=== PATIENT | female | born 1985 | race Caucasian/White ===

== ENCOUNTER → 2016-04-24 | Outpatient (CLI) | payer OTHER ==
[2016-04-24 17:41] LABS: BASO % 0.6 %; BASO ABS # 0.03 K/uL (0-0.2); COMPLETE YES; HEMATOCRIT 37.1 % (37-47); IG% 0.2 %; LYMPH % 33.7 %; LYMPH ABS # 1.74 K/uL (1.2-3.4); MEAN CELL VOLUME 86.1 fL (80-100); MEAN CORPUSCULAR HEMOGLOBIN 29.5 pg (25-34); MEAN CORPUSCULAR HGB CONC 34.2 g/dl (32-36); MEAN PLATELET VOLUME 9.4 fL (7.4-10.4); MONO % 7.8 %; NEUT % 56.7 %; PLATELET COUNT 334 K/uL (130-400); RED BLOOD COUNT 4.31 M/uL (4.2-5.4); WHITE BLOOD COUNT 5.16 K/uL (4.8-10.8)
[2016-04-24 18:11] LABS: THYROID STIMULATING HORMONE 5.04 uIu/ml (0.300-4.500)
[2016-04-27 19:34] LABS: THYROGLOBULIN 0.3 NG/ML (2.8-40.9)
== END | disposition home or self-care (01) ==
LOC: C.LAB1850 16:40
PROVIDERS: ATTEND Nurse Practitioner Adult Health
DX: E03.9 Hypothyroidism, unspecified (principal); D72.819 Decreased white blood cell count, unspecified

== ENCOUNTER → 2016-06-10 | Outpatient (CLI) | payer OTHER ==
[2016-06-10 20:04] LABS: THYROID STIMULATING HORMONE 4.87 uIu/ml (0.300-4.500)
== END | disposition home or self-care (01) ==
LOC: C.LAB 18:41
PROVIDERS: ATTEND Nurse Practitioner Adult Health
DX: E03.9 Hypothyroidism, unspecified (principal)

== ENCOUNTER → 2016-08-02 | Outpatient (CLI) | payer OTHER | END | disposition home or self-care (01) | LOC: C.LAB 17:57 | PROVIDERS: ATTEND Nurse Practitioner Adult Health | DX: E03.9 Hypothyroidism, unspecified (principal) ==

== ENCOUNTER → 2016-12-28 | Outpatient (CLI) | payer OTHER ==
[2016-12-28 11:14] LABS: BASO % 1.1 %; BASO ABS # 0.05 K/uL (0-0.2); COMPLETE YES; EOS % 2.2 %; HEMATOCRIT 38.2 % (37-47); IG% 0.2 %; LYMPH % 32.1 %; LYMPH ABS # 1.46 K/uL (1.2-3.4); MEAN CELL VOLUME 86.2 fL (80-100); MEAN CORPUSCULAR HEMOGLOBIN 28.4 pg (25-34); MEAN PLATELET VOLUME 9.7 fL (7.4-10.4); MONO % 11.4 %; PLATELET COUNT 292 K/uL (130-400); RED BLOOD COUNT 4.43 M/uL (4.2-5.4); WHITE BLOOD COUNT 4.55 K/uL (4.8-10.8)
[2016-12-28 11:30] LABS: ALT/SGPT 19 U/L (12-78); BLOOD UREA NITROGEN 10 mg/dl (7-18); BUN/CREATININE RATIO 11.7 (10-20); CALCIUM 9.1 mg/dl (8.5-10.1); CARBON DIOXIDE 25 mmol/L (21-32); CHLORIDE 106 mmol/L (98-107); CHOLESTEROL 209 mg/dl (0-200); CREATININE 0.84 mg/dl (0.60-1.20); GLUCOSE 94 mg/dl (70-99); POTASSIUM 3.9 mmol/L (3.5-5.1); SODIUM 138 mmol/L (136-145)
[2016-12-28 11:38] LABS: ALKALINE PHOSPHATASE 41 U/L (45-117); AST/SGOT 12 U/L (15-37); CHOLESTEROL/HDL RATIO 3.3; HDL CHOLESTEROL 64 mg/dl; LDL CHOLESTEROL CALCULATED 126 mg/dl; TRIGLYCERIDES 97 mg/dl (0-150); VERY LOW DENSITY LIPOPROT CALC 19 mg/dl
== END | disposition home or self-care (01) ==
LOC: C.LABBC 09:36
PROVIDERS: ATTEND Nurse Practitioner Adult Health
DX: Z00.00 Encounter for general adult medical examination without abnormal findings (principal); E03.9 Hypothyroidism, unspecified; E78.5 Hyperlipidemia, unspecified

== ENCOUNTER → 2017-02-15 | Outpatient (CLI) | payer OTHER ==
[2017-02-15 13:33] LABS: THYROID STIMULATING HORMONE 0.016 uIu/ml (0.300-4.500)
== END | disposition home or self-care (01) ==
LOC: C.LAB1850 11:16
PROVIDERS: ATTEND Nurse Practitioner Adult Health
DX: E03.9 Hypothyroidism, unspecified (principal)

== ENCOUNTER 2017-06-27 17:11 | Emergency (ER) | payer OTHER ==
[~2017-06-27] VITALS: Ht 170.2 cm; Wt 89.7 kg
[2017-06-27 17:13] VITALS: TEMP 36.6; Ht 170.2 cm; Wt 89.7 kg
[2017-06-27] MEDS ORDERED: SODIUM CHLORIDE 0.9% 1000ML 2,000 ML IV STA (17:29)
[2017-06-27 17:41] LABS: BASO % 0.3 %; BASO ABS # 0.02 K/uL (0-0.2); EOS % 0.5 %; EOS ABS # 0.03 K/uL (0-0.5); HEMATOCRIT 37.9 % (37-47); HEMOGLOBIN 13.7 g/dL (12.0-16.0); IG# 0.01 K/uL (0.00-0.02); LYMPH % 38.5 %; LYMPH ABS # 2.45 K/uL (1.2-3.4); MEAN CORPUSCULAR HEMOGLOBIN 29.3 pg (25-34); MEAN CORPUSCULAR HGB CONC 36.1 g/dl (32-36); MEAN PLATELET VOLUME 9.2 fL (7.4-10.4); MONO % 9.6 %; MONO ABS # 0.61 K/uL (0.11-0.59); NEUT % 50.9 %; NEUT ABS # 3.24 K/uL (1.4-6.5); PLATELET COUNT 334 K/uL (130-400); RED CELL DISTRIBUTION WIDTH CV 13.4 % (11.5-14.5); RED CELL DISTRIBUTION WIDTH SD 39.3 fL (36.4-46.3); WHITE BLOOD COUNT 6.36 K/uL (4.8-10.8)
[2017-06-27 17:43] VITALS: O2SAT 100
[2017-06-27 17:56] LABS: ALBUMIN 4.3 gm/dl (3.4-5.0); ALT/SGPT 22 U/L (12-78); AST/SGOT 13 U/L (15-37); BLOOD UREA NITROGEN 8 mg/dl (7-18); CALCIUM 9.5 mg/dl (8.5-10.1); CARBON DIOXIDE 19 mmol/L (21-32); CREATININE 0.95 mg/dl (0.60-1.20); GLUCOSE 103 mg/dl (70-99); LIPASE 149 U/L (73-393); SODIUM 136 mmol/L (136-145)
[2017-06-27 18:02] LABS: ALKALINE PHOSPHATASE 45 U/L (45-117); TOTAL PROTEIN 8.3 gm/dl (6.4-8.2)
--- NOTE | 2017-06-27 18:25 | DIAGNOSTIC IMAGING REPORT ---
CHEST ONE VIEW PORTABLE CLINICAL HISTORY: 31 years-old Female presenting with CHEST PAIN, shortness of breath. TECHNIQUE: Portable upright AP view of the chest was obtained. COMPARISON: None. FINDINGS: Cardiomediastinal silhouette normal. Lungs and pleural spaces clear. Osseous structures normal. Upper abdomen normal. IMPRESSION: 1. No acute cardiopulmonary disease. Electronically signed by: Tristin Lim M.D. 06/27/2017 6:24 PM Dictated Date/Time: 06/27/2017 6:23 PM
[2017-06-27] MEDS ORDERED: SODIUM CHLORIDE 0.9% 1000ML 1,000 ML IV STA (18:41)
[2017-06-27] MEDS ORDERED: POTASSIUM CHLORIDE 10 MEQ / 100ML WTR IV STA (18:41)
[2017-06-27] MEDS ORDERED: POTASSIUM CHLORIDE 10 MEQ TABCR PO STA (18:41)
[2017-06-27] MEDS ORDERED: BUPR-83 PO (20:21)
[2017-06-27] MEDS ORDERED: VITB2 PO (20:21)
[2017-06-27] MEDS ORDERED: TYLOTC500 PO (20:21)
[2017-06-27] MEDS ORDERED: MISCCAP80 PO (20:21)
[2017-06-27] MEDS ORDERED: LEVO25TA PO (20:21)
--- NOTE | 2017-06-27 20:45 | EMERGENCY ROOM VISIT NOTE ---
History Report prepared by Camila: Jeanie Watts Under the Supervision of: Dr. Dev Pierre M.D. First contact with patient: 17:18 Chief Complaint: SHORTNESS OF BREATH Stated Complaint: DIZZY,SOB,SHAKING Nursing Triage Summary: Pt ambulatory to triage with c/o "trouble catching breath all day. I'm starting to feel dizzy and shaky." Denies cp or pain in legs. Denies recent illness or cough. Pt states just found out on Fri that she is . History of Present Illness The patient is a 31 year old female who presents to the Emergency Room with complaints of persistent SOB starting earlier today. The patient has never experienced this before. The SOB seemed to start out of the blue. She was feeling fine yesterday and prior to onset. Her arms are feeling numb and tingly. She denies any cough, congestion, chest pain, nausea, vaginal bleeding, burning with urination, abdominal cramping, vomiting, or diarrhea. She is not on control. She reports is around 4 weeks . Her last menstrual period was May 30. She has 4 children at home. She denies any history of anxiety or panic attacks. She denies any recent travel or surgery. She denies any history of blood clots in herself or her family. She has a history of depression. She denies any new stressors recently. She is a former smoker. She denies any drug or alcohol use. She has a history of hypothyroidism. She denies taking any extra doses of her thyroid medication. Source of History: patient Onset: earlier today Position: other (breathing) Quality: other (SOB) Timing: other (persistent) Associated Symptoms: + numbness, No cough, No chest pain, No nausea, No vomiting, No abdominal pain, No diarrhea, No urinary symptoms Review of Systems See HPI for pertinent positives and negatives. A total of ten systems were reviewed and were otherwise negative. Past Medical & Surgical Medical Problems: (1) Hypothyroidism Family History No family history of blood clots. Social History Housing Status: lives with family Current/Historical Medications Scheduled Bupropion (Wellbutrin), 100 MG PO TID Levothyroxine Sodium (Synthroid), 1 TAB PO DAILY Probiotic Product (Probiotic), 1 CAP PO DAILY Riboflavin (Vitamin B-2), 1 TAB PO DAILY Scheduled PRN Acetaminophen (Tylenol), 1,000 MG PO Q6 PRN for Headache or Pain Physical Exam Vital Signs Date Time Temp Pulse Resp B/P (MAP) Pulse Ox O2 Delivery O2 Flow Rate FiO2 06/27/17 20:59 83 18 110/62 100 Room Air 06/27/17 20:14 85 18 107/65 100 Room Air 06/27/17 18:35 83 18 134/67 100 Room Air 06/27/17 17:49 91 06/27/17 17:43 100 Room Air 06/27/17 17:13 36.6 111 16 141/82 100 Room Air Physical Exam GENERAL: Awake, alert, anxious-appearing, in no distress HENT: Normocephalic, atraumatic. Dry mucous membranes. EYES: Normal conjunctiva. Sclera non-icteric. NECK: Supple. No nuchal rigidity. FROM. No JVD. RESPIRATORY: Clear to auscultation. CARDIAC: Sinus tachycardia. Extremities warm and well perfused. Pulses equal. ABDOMEN: Soft, non-distended. No tenderness to palpation. No rebound or guarding. No masses. RECTAL: Deferred. MUSCULOSKELETAL: Chest examination reveals no tenderness. The back is symmetrical on inspection without obvious abnormality. There is no CVA tenderness to palpation. No joint edema. LOWER EXTREMITIES: Calves are equal size bilaterally and non-tender. No edema. No discoloration. NEURO: Normal sensorium. No sensory or motor deficits noted. SKIN: No rash or jaundice noted. Medical Decision & Procedures ER Provider Diagnostic Interpretation: Radiology results as stated below per my review and radiologist interpretation: CHEST ONE VIEW PORTABLE CLINICAL HISTORY: 31 years-old Female presenting with CHEST PAIN, shortness of breath. TECHNIQUE: Portable upright AP view of the chest was obtained. COMPARISON: None. FINDINGS: Cardiomediastinal silhouette normal. Lungs and pleural spaces clear. Osseous structures normal. Upper abdomen normal. IMPRESSION: 1. No acute cardiopulmonary disease. Electronically signed by: Tristin Lim M.D. 06/27/2017 6:24 PM Dictated Date/Time: 06/27/2017 6:23 PM Laboratory Results 06/27/17 17:25 Red Blood Count 4.68, Mean Corpuscular Volume 81.0, Mean Corpuscular Hemoglobin 29.3, Mean Corpuscular Hemoglobin Concent 36.1, Mean Platelet Volume 9.2, Neutrophils (%) (Auto) 50.9, Lymphocytes (%) (Auto) 38.5, Monocytes (%) (Auto) 9.6, Eosinophils (%) (Auto) 0.5, Basophils (%) (Auto) 0.3, Neutrophils # (Auto) 3.24, Lymphocytes # (Auto) 2.45, Monocytes # (Auto) 0.61, Eosinophils # (Auto) 0.03, Basophils # (Auto) 0.02 06/27/17 17:25 Test 06/27/17 17:25 06/27/17 18:31 06/27/17 19:03 White Blood Count 6.36 K/uL (4.8-10.8) Red Blood Count 4.68 M/uL (4.2-5.4) Hemoglobin 13.7 g/dL (12.0-16.0) Hematocrit 37.9 % (37-47) Mean Corpuscular Volume 81.0 fL (80-100) Mean Corpuscular Hemoglobin 29.3 pg (25-34) Mean Corpuscular Hemoglobin Concent 36.1 g/dl (32-36) Platelet Count 334 K/uL (130-400) Mean Platelet Volume 9.2 fL (7.4-10.4) Neutrophils (%) (Auto) 50.9 % Lymphocytes (%) (Auto) 38.5 % Monocytes (%) (Auto) 9.6 % Eosinophils (%) (Auto) 0.5 % Basophils (%) (Auto) 0.3 % Neutrophils # (Auto) 3.24 K/uL (1.4-6.5) Lymphocytes # (Auto) 2.45 K/uL (1.2-3.4) Monocytes # (Auto) 0.61 K/uL (0.11-0.59) Eosinophils # (Auto) 0.03 K/uL (0-0.5) Basophils # (Auto) 0.02 K/uL (0-0.2) RDW Standard Deviation 39.3 fL (36.4-46.3) RDW Coefficient of Variation 13.4 % (11.5-14.5) Immature Granulocyte % (Auto) 0.2 % Immature Granulocyte # (Auto) 0.01 K/uL (0.00-0.02) Anion Gap 12.0 mmol/L (3-11) Est Creatinine Clear Calc Drug Dose 97.8 ml/min Estimated GFR () 91.9 Estimated GFR (Non- 79.3 BUN/Creatinine Ratio 8.1 (10-20) Calcium Level 9.5 mg/dl (8.5-10.1) Magnesium Level 2.1 mg/dl (1.8-2.4) Total Bilirubin 0.5 mg/dl (0.2-1) Direct Bilirubin 0.1 mg/dl (0-0.2) Aspartate Amino Transf (AST/SGOT) 13 U/L (15-37) Alanine Aminotransferase (ALT/SGPT) 22 U/L (12-78) Alkaline Phosphatase 45 U/L (45-117) Troponin I < 0.015 ng/ml (0-0.045) Pro-B-Type Natriuretic Peptide 39 pg/ml (0-450) Total Protein 8.3 gm/dl (6.4-8.2) Albumin 4.3 gm/dl (3.4-5.0) Lipase 149 U/L (73-393) Thyroid Stimulating Hormone (TSH) 0.215 uIu/ml (0.300-4.500) Free Thyroxine 0.89 ng/dl (0.80-1.60) Free Triiodothyronine 2.93 pg/ml (2.30-4.20) Human Chorionic Gonadotropin, Quant 277 mIU/mL Urine Color YELLOW Urine Appearance CLEAR (CLEAR) Urine pH 8.0 (4.5-7.5) Urine Specific [place] 1.006 (1.000-1.030) Urine Protein NEG (NEG) Urine Glucose (UA) NEG (NEG) Urine Ketones TRACE (NEG) Urine Occult Blood NEG (NEG) Urine Nitrite NEG (NEG) Urine Bilirubin NEG (NEG) Urine Urobilinogen NEG (NEG) Urine Leukocyte Esterase NEG (NEG) Venous Blood pH 7.50 (7.36-7.41) Venous Blood Partial Pressure CO2 27 mmHg (38.0-50.0) Venous Blood Partial Pressure O2 22 mmHg Venous Blood HCO3 21 mmol/L Venous Blood Oxygen Saturation < 60.0 % Venous Blood Base Excess -1.3 mEq/L Laboratory results reviewed by me Medications Administered Medications (Trade) Dose Ordered Sig/Lizzy Route Start Time Stop Time Status Last Admin Dose Admin Sodium Chloride 2,000 ml @ 999 mls/hr Q2H1M STAT IV 06/27/17 17:29 06/27/17 19:29 DC 06/27/17 17:41 999 MLS/HR Sodium Chloride 1,000 ml @ 999 mls/hr Q1H1M STAT IV 06/27/17 18:41 06/27/17 19:41 DC 06/27/17 18:57 999 MLS/HR Potassium Chloride (Kcl 10 Meq / Wtr) 20 meq NOW STAT IV 06/27/17 18:41 06/27/17 18:45 DC 06/27/17 18:57 20 MEQ Potassium Chloride (Klor-Con M10) 40 meq NOW STAT PO 06/27/17 18:41 06/27/17 18:45 DC 06/27/17 18:57 40 MEQ ECG Per My Interpretation Indication: SOB/dyspnea Rate (beats per minute): 119 Rhythm: sinus tachycardia Findings: no acute ischemic change, other (normal axis) ED Course 1723: The patient was evaluated in room B7. A complete history and physical exam was performed. 1846: I reevaluated the patient. She is doing much better. 2039: I reevaluated the patient. Discussed results and discharge instructions: She verbalized understanding and agreement. The patient is ready for discharge. Medical Decision I reviewed the patient's past medical history, medications, and the nursing notes as described above. Differential diagnosis: Etiologies such as infections, reactive airway disease, pneumonia, pneumothorax , COPD, CHF, cardiac ischemia, pulmonary embolism, musculoskeletal, gastrointestinal, as well as others were entertained. The patient is a 31-year-old woman , currently 4 weeks , presents to the emergency department with onset of shortness of breath that began this morning per hpi. Of note, the patient denies any recent infectious symptoms. Denies prior history of DVT or PE. Patient does report dyspnea she denies any chest pain or pleuritic symptoms. On arrival, patient is anxious appearing but no acute distress, afebrile with heart rate 110s and systolic blood pressure in the 140s. EKG demonstrates sinus tachycardia and otherwise is unremarkable. Chest x-ray is negative. Labs are consistent with dehydration with bicarb of 19. A small amount of ketones in the urine. No proteinuria. VBG consistent with hyperventilation which was likely provoked by the patient's history of depression and possible underlying anxiety. ECG 250 while the patient is approximately 4 weeks , hCG level suggest possibly closer to 3 weeks. Given the low hCG level unlikely to be able to identify IUP on ultrasound and given her lack of abdominal or vaginal symptoms no indication to obtain ultrasound at this time to evaluate for alternate causes for elevated hCG such as ectopic or molar . Otherwise, the patient has been with normal oxygen saturations on room air throughout her ED observation. The patient's tachycardia resolved after IV fluid hydration and the patient's dyspnea was significantly improved and vital signs as well with heart rate in the 80s and blood pressure of 110s over 60s. Did discuss the patient the possibility of a pulmonary embolism given her risk factors of her current . However, given her lack of chest pain/pleuritic symptoms as well as her improved symptoms with IV fluid hydration alone in setting of having a normal oxygen saturation throughout her observation in the ED I believe it is unlikely that the patient's symptoms are due to a pulmonary embolus. Moreover d-dimer deferred given the high probability of being positive in this patient further confused the patient's evaluation. Again, after IV fluid hydration the patient was feeling much improved, her potassium was repleted. Patient will follow up with her PCP on Friday and will contact her OB office to obtain appointment as soon as is appropriate. Findings and plan for follow-up reviewed with patient. Patient agreeable and d/c'd per discharge instructions. Medication Reconcilliation Current Medication List: was personally reviewed by me Blood Pressure Screening Patient's blood pressure: Normal blood pressure Blood pressure disposition: Did not require urgent referral Impression Primary Impression: Dehydration during Additional Impressions: Shortness of breath due to in first trimester Hypokalemia Scribe Attestation The scribe's documentation has been prepared under my direction and personally reviewed by me in its entirety. I confirm that the note above accurately reflects all work, treatment, procedures, and medical decision making performed by me. Departure Information Dispostion Home / Self-Care Referrals No Doctor, Assigned (PCP) Patient Instructions ED Dehydration, ED Dyspnea Shortness of Breath, ED Potassium Deficiency, My [facility], Preg 1st Trimester Additional Instructions Please follow up with your primary care physician on Friday and contact your aeronautical engineering officer for your first OB appointment for re-evaluation. Your symptoms are most likely related to dehydration which may have been provoked by your body's changes in the first trimester of . Otherwise, your exam, EKG, chest xray, and lab results did not show signs of an emergent condition at this time. Drink plenty of fluids to ensure hydration. Return to the emergency department for worsening symptoms as described in the accompanying instructions. Problem Qualifiers
[2017-06-27 20:59] VITALS: BP 110/62; PULSE 83; O2SAT 100
== END 2017-06-27 21:12 | disposition home or self-care (01) ==
LOC: C.EDB 17:12
DX: O99.281 Endocrine, nutritional and metabolic diseases complicating pregnancy, first trimester (principal); O99.511 Diseases of the respiratory system complicating pregnancy, first trimester; Z3A.01 Less than 8 weeks gestation of pregnancy; E86.0 Dehydration; R06.02 Shortness of breath; E87.6 Hypokalemia; Z87.891 Personal history of nicotine dependence; E03.9 Hypothyroidism, unspecified; F32.9 Major depressive disorder, single episode, unspecified; Z79.899 Other long term (current) drug therapy

== ENCOUNTER → 2017-07-05 | Outpatient (CLI) | payer OTHER ==
[~2017-07-05] MED LIST: BUPR-83 PO; LEVO25TA PO; MISCCAP80 PO; TYLOTC500 PO; VITB2 PO
== END | disposition home or self-care (01) ==
LOC: C.LAB1850 11:49
PROVIDERS: ATTEND Family Medicine
DX: E03.9 Hypothyroidism, unspecified (principal)

== ENCOUNTER → 2017-07-28 | Outpatient (CLI) | payer OTHER | END | disposition home or self-care (01) | LOC: C.LAB 18:31 | PROVIDERS: ATTEND Family Medicine | DX: E03.9 Hypothyroidism, unspecified (principal) ==

== ENCOUNTER → 2017-11-08 | Outpatient (CLI) | payer OTHER ==
[~2017-11-08] MED LIST changes: -LEVO25TA PO; +LEVO75TA5 PO; -MISCCAP80 PO; +PRENTAB26 PO; -VITB2 PO
== END | disposition home or self-care (01) ==
LOC: C.LAB1850 11:40
PROVIDERS: ATTEND Physician Assistant
DX: E03.9 Hypothyroidism, unspecified (principal)

== ENCOUNTER 2020-04-28 07:39 | Inpatient (IN) ==
[2020-04-28] MEDS ORDERED: PENICILLIN G POTASSIUM 3 MU in DEXTROSE 5% 100 ML IV PRN (07:58)
[2020-04-28] MEDS ORDERED: OXYTOCIN 30 UNITS/500 ML BAG IV PRN ×2 (07:58)
[2020-04-28] MEDS ORDERED: PENICILLIN G POTASSIUM 6 MU in DEXTROSE 5% 250 ML IV STA (08:05)
[2020-04-28 08:15] LABS: Hematocrit (blood only) 33.5 % (37-47); Hemoglobin 11.7 g/dL (12.0-16.0); Mean Corpuscular Hemoglobin 29.8 pg (25-34); Mean Corpuscular Hgb Conc 34.9 g/dL (32-36); Mean Corpuscular Volume 85.2 fL (80-100); Mean Platelet Volume 9.2 fL (7.4-10.4); Platelet Count 272 K/uL (130-400); RDW Coefficient of Variation 13.9 % (11.5-14.5); RDW Standard Deviation 43.3 fL (36.4-46.3); Red Blood Count 3.93 M/uL (4.2-5.4); White Blood Count 8.93 K/uL (4.8-10.8)
[2020-04-28] MEDS: LACTATED RINGER'S 1,000 ML IV PRN ×2 (08:59→16:52)
--- NOTE | 2020-04-28 13:14 | Labor Progress Brief Note ---
Date of Service April 28, 2020 Subjective Tolerating contractions which are mild at this point. No LOF, VB. Has good FM. Ready for AROM. Assessment & Plan (1) Carrier of group B Streptococcus: IOL electively, at patient request to ensure both doses of PCN are in prior to delivery. Pitocin started this morning after patient and FOB counseled and agreed to proceed. AROM now that second dose is due and about to begin. Epidural on request though patient plans unmedicated as she has had previously. Admission and Anticipated Discharge Date Admission Date: April 28, 2020 Physical Exam Physical Exam: Pit @ 9 Second dose PCN due now, has not arrived from pharmacy but RN has been told it's on the way up now. Cvx 3/50/-2 AROM clear fluid FHT Cat 1 [place] irreg, Q3m Results & Data ([facility]) Vital Signs (Past 12 Hours) Vital Signs Pulse BP 04/28/20 10:55 90 120/81 04/28/20 10:15 82 128/63 04/28/20 07:48 117 H 145/74 H Coding Level of Care Code None Diagnoses Carrier of group B Streptococcus Z22.330
[2020-04-28] MEDS ORDERED: ONDANSETRON INJ 2 MG/ML 2 ML VIAL IV STA (15:45)
--- NOTE | 2020-04-28 16:04 | Labor Progress Brief Note ---
Date of Service April 28, 2020 Subjective Patient c/o urge to push. Assessment & Plan (1) Carrier of group B Streptococcus: Patient disappointed but reassured this is normal progress and her breathing techniques and coping are working well, status reassuring. Continue plan of care. Epidural remains available if desired. Admission and Anticipated Discharge Date Admission Date: April 28, 2020 Physical Exam Physical Exam: 4/100/0 FHT Cat 1 [place] Q2 Pitocin @ 11 Results & Data ([facility]) Vital Signs (Past 12 Hours) Vital Signs Temp Pulse Resp BP 04/28/20 15:30 20 04/28/20 15:05 97.7 F 04/28/20 15:01 88 117/64 04/28/20 13:42 83 118/65 04/28/20 12:16 98.4 F 04/28/20 10:55 90 120/81 04/28/20 10:15 82 128/63 04/28/20 08:38 98.4 F 04/28/20 07:48 117 H 145/74 H Coding Level of Care Code None Diagnoses Carrier of group B Streptococcus Z22.330
[2020-04-28] MEDS ORDERED: BUPIVACAINE 0.25% 30 ML VIAL ONE (16:16)
[2020-04-28] MEDS ORDERED: SODIUM CHLORIDE 0.9% INJ 10 ML VIAL ONE (16:16)
[2020-04-28] MEDS ORDERED: ePHEDrine sulfate 50 MG/ML AMP ONE (16:16)
[2020-04-28] MEDS ORDERED: fentaNYL citrate 100 MCG/2 ML VIAL ONE (16:16)
[2020-04-28] MEDS ORDERED: fentaNYL 2MCG/ML ROPIVACAINE 1.25MG/ML 100 ML BAG EPI ONE (16:17)
[2020-04-28] MEDS ORDERED: diphenhydrAMINE 50 MG/ML VIAL IV PRN (16:28)
[2020-04-28] MEDS ORDERED: fentaNYL 2MCG/ML ROPIVACAINE 1.25MG/ML 100 ML BAG EPI PRN (16:28)
[2020-04-28] MEDS ORDERED: NALOXONE HCL 1 MG in SODIUM CHLORIDE 0.9% 1000ML 1,000 ML IV PRN (16:28)
[2020-04-28] MEDS ORDERED: ONDANSETRON INJ 2 MG/ML 2 ML VIAL IV PRN (16:28)
[2020-04-28] MEDS ORDERED: NALOXONE HCL 0.4 MG/1 ML VIAL/CARP IV PRN (16:28)
[2020-04-28] MEDS ORDERED: PROMETHAZINE HCL 25 MG in SODIUM CHLORIDE 0.9% 50 ML IV PRN (16:28)
[2020-04-28] MEDS ORDERED: ePHEDrine sulfate 50 MG/ML AMP IV PRN (16:28)
--- NOTE | 2020-04-28 16:28 | Anesthesiology Consultation ---
Date of Service April 28, 2020 Assessment & Plan ASA ASA2 Proposed Anesthesia Anesthesia Type: General Risk / Benefits Reviewed With: PT / POA / Parent / Guardian, Accepts Plan and Informed Consent Obtained History Height/Weight Height: 5 ft 7 in Weight: 94.801 kg Allergies Allergy/AdvReac Type Severity Reaction Status Date / Time No Known Allergies Allergy Verified 04/26/20 13:10 Medications Home Medications Medication Instructions Recorded Confirmed Last Taken breast pump #1 ea 03/30/20 04/26/20 Unknown bupropion HCl 300 mg PO QAM 04/28/20 04/28/20 04/28/20 06:30 levothyroxine 175 mcg PO DAILY 04/28/20 04/28/20 04/28/20 06:30 prenat.vits,evelina,xfp-[id number] 1 tab PO DAILY 04/28/20 04/28/20 04/28/20 06:30 [ Vitamin] Active Medications Generic Name Dose Route Start Last Admin Trade Name Freq PRN Reason Stop Dose Admin Penicillin G Potassium 3 mu/ 106 mls @ 100 mls/hr 04/28/20 07:58 04/28/20 15:52 Dextrose IV 05/08/20 07:57 Infused Q4H PRN Infusion Give until delivery Oxytocin 30 units in 500 mls @ 11 mls/hr 04/28/20 07:58 04/28/20 15:06 Pitocin IV 04/30/20 07:57 0.66 units/hr .Q24H PRN 11 mls/hr Labor Induction/Augmentation Titration Protocol 0.66 UNITS/HR Lactated Ringer's 1,000 mls @ 125 mls/hr 04/28/20 07:58 04/28/20 15:06 Lr IV 04/30/20 07:57 125 mls/hr .Q8H PRN Infusion L&D Protocol Protocol Past Medical History Medical History Depression with anxiety Dyspareunia Elderly multigravida Encounter for anatomic survey History of chicken pox Leukopenia SAB (spontaneous ) Varicose veins of both lower extremities Exercise / Class Metabolic Activity II 4-5 Yardwork/Stairs/Walk up hill Past Family History Family History Grandmother (Maternal) Myocardial infarction Thyroid disease Mother Thyroid disease Denies family history of Ovarian cancer Prostate cancer Breast cancer Colorectal cancer Past Surgical History Surgical History History of appendectomy History of surgery vein ablation S/P tonsillectomy and adenoidectomy S/P wisdom tooth extraction Past Anesthesia History No Hx of Anesthesia Complications and No Family Hx of Anesthesia Complications History of PONV No Hx of PONV and No Hx of Motion Sickness Social History Smoking Status: Never smoker Hx Alcohol Use: No Hx Substance Use: No substance use type: does not use Review of Systems denies fever/cough/ colds/ chest pain/ SOB/ NICKY denies NICKY Physical Exam Vital Signs Last Vital Signs Temp 36.5 C 04/28/20 15:05 Pulse 73 04/28/20 16:22 Resp 20 04/28/20 16:00 BP 117/64 04/28/20 15:01 Pulse Ox 98 04/28/20 16:22 ENMT Mouth: no TMJ abnormality and no dentition abnormality Thyromental Distance: > or= 3.5 Finger Breadths Mallampati Class: II Neck neck extension not limited Respiratory normal respiratory effort; no respiratory distress Auscultation: lungs clear to auscultation bilaterally Cardiovascular Rate/Rhythm: regular rate and regular rhythm Neurologic moves all extremities Psychiatric Orientation: alert and oriented x 3 Testing Laboratory Results 04/28/20 08:04
--- NOTE | 2020-04-28 19:44 | Delivery Summary ---
Vaginal Delivery Summary Date of Service April 28, 2020 Vaginal Delivery Summary DIAGNOSES: 1. Doe intrauterine at 39w3d gestation. 2. Induction of labor, elective. 3. Group B Streptococcus positive. PROCEDURE: Spontaneous vaginal delivery and repair of 1st degree laceration. SURGEON: Kathi Steinberg MD. HOTEL GUEST SERVICE AGENT: None. ESTIMATED BLOOD LOSS: 400 mL. COMPLICATIONS: None. PLACENTA: Spontaneous and intact with a 3-vessel cord. DISPOSITION: Stable to labor and delivery. DESCRIPTION: The patient pushed well and brought the head to in OA position. The 's head was allowed to deliver with contraction force and no further active pushing, with the perineum protected during this time. The shoulders delivered easily with a maternal pushing effort. There was no nuchal cord. The left shoulder was anterior. The shoulders and body delivered without any difficulty, and the was placed on the maternal abdomen. It was vigorous and moving all extremities, and making respiratory efforts. The cord was doubly clamped by the MD and then cut by the FOB. The placenta delivered spontaneously and was noted to be intact and with a 3VC. The cervix, vagina and perineum were examined and were found to have a first degree laceration, which was repaired in running locked manner with 3-0 vicryl. The fundus was firm and lochia minimal immediately after delivery. [facility] Vaginal Delivery Charge Vaginal Delivery Codes: 81396 global code for the antepartum, delivery, and post-
[2020-04-28] MEDS ORDERED: BENZOCAINE 20% AER SPR 82.5 GM CAN EXT PRN (20:38)
[2020-04-28] MEDS ORDERED: DIPHTHERIA/TETANUS/PERTUSSIS 0.5 ML SYR/VIAL IM ONE (20:38)
[2020-04-28] MEDS ORDERED: HYDROCORTISONE ACETATE 25 MG SUPP PR PRN (20:38)
[2020-04-28] MEDS ORDERED: oxyCODONE/ACETAMINOPHEN 5mg/325mg TAB PO PRN (20:38)
[2020-04-28] MEDS ORDERED: SUPERCREAM 0.870% 15 GM JAR EXT PRN (20:38)
[2020-04-28] MEDS ORDERED: ACETAMINOPHEN 325 MG TAB PO PRN (20:38)
[2020-04-28] MEDS ORDERED: ONDANSETRON INJ 2 MG/ML 2 ML VIAL ONE (21:01)
--- NOTE | 2020-04-28 23:06 | Anesthesiology Progress Note ---
Date of Service April 28, 2020 Anesthesia Post Procedure Vital Signs Vital Signs: Temp Pulse Pulse Resp BP BP Pulse Ox 04/28/20 20:30 37.0 C 64 18 114/74 04/28/20 20:00 37.0 C 18 04/28/20 19:46 80 109/53 L 04/28/20 19:32 20 04/28/20 19:31 91 H 116/56 L 04/28/20 19:16 78 113/59 L 04/28/20 19:02 87 18 116/56 L 04/28/20 18:46 75 101/56 L 04/28/20 18:31 80 16 101/59 L 04/28/20 18:16 86 18 102/55 L 04/28/20 18:01 81 102/59 L 04/28/20 17:46 36.5 C 72 20 108/59 L 04/28/20 17:42 85 100 04/28/20 17:37 80 106/58 L 99 04/28/20 17:32 81 97 04/28/20 17:27 73 94 04/28/20 17:25 77 93 04/28/20 17:22 83 98 04/28/20 17:19 77 115/63 04/28/20 17:17 74 119/61 96 04/28/20 17:15 83 115/68 04/28/20 17:13 84 117/76 04/28/20 17:12 74 96 04/28/20 17:11 87 109/81 04/28/20 17:09 85 110/63 04/28/20 17:07 84 119/71 95 04/28/20 17:05 75 120/69 04/28/20 17:03 72 119/64 04/28/20 17:02 64 99 04/28/20 17:01 63 120/58 L 04/28/20 16:59 65 118/63 04/28/20 16:57 66 120/66 97 04/28/20 16:55 70 124/69 04/28/20 16:53 73 121/65 04/28/20 16:52 86 97 04/28/20 16:51 75 129/69 04/28/20 16:47 77 98 04/28/20 16:42 93 H 97 04/28/20 16:37 81 97 04/28/20 16:32 73 100 01/29/21 16:30 22 04/28/20 16:27 68 99 04/28/20 16:22 73 98 04/28/20 16:00 20 04/28/20 15:30 20 04/28/20 15:05 36.5 C 16 04/28/20 15:01 88 117/64 04/28/20 13:42 83 118/65 04/28/20 12:16 36.9 C 04/28/20 10:55 90 120/81 04/28/20 10:15 82 128/63 04/28/20 08:38 36.9 C 04/28/20 07:48 117 H 145/74 H Transfer of Care Handoff Completed per policy Notes Mental Status: alert / awake / arousable and participated in evaluation Patient Amnestic to Procedure: Yes Nausea / Vomiting: adequately controlled Pain: adequately controlled Airway Patency, RR, SpO2: stable & adequate BP & HR: stable & adequate Hydration State: stable & adequate Anesthetic Complications: no major complications apparent and Pt Satisfied with anesthetic care
[2020-04-29] MEDS: IBUPROFEN 600 MG TAB PO PRN ×4 (00:39→12:40)
--- NOTE | 2020-04-29 06:15 | Obstetrical Progress Note ---
Date of Service <Dee Rivera - Last Filed: 04/29/20 06:52> April 29, 2020 Assessment & Plan <Dee Renee Rivera DO - Last Filed: 04/29/20 06:52> (1) state: PPD #1 - PNL: Rh pos, RI, GBS POSITIVE, COVID neg -- GBS adequately treated during labor/prior to delivery - Feels well today. Eating well, voiding well, ambulating well. - Pain well controlled with ibuprofen 600mg Q4H PRN - Routine care -- OOB, ambulation, diet progression as tolerated - After discharge will have 6 week follow-up with Dr. Steinberg. Subjective <Dee Rivera - Last Filed: 04/29/20 06:52> Kelly Canada is a 34 y/o female who is PPD #1 following spontaneous vaginal delivery at 39 +3 weeks. She reports feeling well overall this morning. Minimal abdominal cramping and 4/10 pain well managed on analgesics. Voiding without dysuria. Tolerating meals overnight without difficulty. Patient has been able to ambulate some. Not yet passing gas. Has persistent lochia with some improvement this morning. Currently . Review of Systems Denies fever or chills. Denies shortness of breath or cough. Denies chest pain. Denies breast pain. Denies dysuria. Denies leg pain or leg swelling. Denies headache or changes in vision. Physical Exam <Dee Rivera DO - Last Filed: 04/29/20 06:52> General: Alert, oriented. No acute distress. Cardiac: Regular rate and rhythm. No murmurs. Respiratory: Clear to auscultation bilaterally a/p, no wheezes/rales/rhonchi. No increased work of breathing. Symmetrical chest rise. No respiratory distress. Abdomen: Soft, nontender, nondistended. Bowel sounds present. Uterus: Uterine fundus firm, palpable 3 cm above umbilicus but patient noted to have pannus and uterus is felt to be appropriate and within normal limits. Lower Extremities: No lower extremity edema or swelling. No deep calf pain. Flakito's negative bilaterally. Results & Data ([facility]) <Dee Rivera DO - Last Filed: 04/29/20 06:52> Vital Signs (Past 12 Hours) Vital Signs Temp Pulse Pulse Resp BP BP 04/29/20 04:45 36.7 C 76 18 113/73 04/29/20 00:35 36.4 C L 76 18 122/73 04/28/20 20:30 37.0 C 64 18 114/74 04/28/20 20:00 37.0 C 18 04/28/20 19:46 80 109/53 L 04/28/20 19:32 20 04/28/20 19:31 91 H 116/56 L 04/28/20 19:16 78 113/59 L 04/28/20 19:02 87 18 116/56 L 04/28/20 18:46 75 101/56 L 04/28/20 18:31 80 16 101/59 L 04/28/20 18:16 86 18 102/55 L Laboratory Results 04/28/20 04/28/20 04/28/20 Range/Units 08:09 08:09 08:04 WBC 8.93 (4.8-10.8) K/uL RBC 3.93 L (4.2-5.4) M/uL Hgb 11.7 L (12.0-16.0) g/dL Hct 33.5 L (37-47) % MCV 85.2 (80-100) fL MCH 29.8 (25-34) pg MCHC 34.9 (32-36) g/dL RDW Std Deviation 43.3 (36.4-46.3) fL RDW Coeff of Rene 13.9 (11.5-14.5) % Plt Count 272 (130-400) K/uL MPV 9.2 (7.4-10.4) fL COVID-19 Eval Order Covid19 [facility] SARS-CoV-2, RNA, NAAT NEGATIVE (NEGATIVE) <Kathi Steinberg MD - Last Filed: 04/29/20 06:57> Co-Signing Physician Notes Resident Physician Supervision Note: I interviewed and examined the patient. Discussed with Dr. Rivera and agree with findings and plan as documented in the note. Any exceptions or clarifications are listed here: None Documented By: Kathi Steinberg MD, FACOG Resident Activity Tracking <Dee Rivera, DO - Last Filed: 04/29/20 06:52> Resident Involvement: Resident Care Provided Care Provided: OB Delivery
[2020-04-29] MEDS ORDERED: LEVOTHYROXINE SODIUM 175 MCG TABLET PO SCH (06:30)
[2020-04-29 06:53] LABS: Hematocrit (blood only) 29.7 % (37-47); Mean Corpuscular Hemoglobin 29.2 pg (25-34); Mean Corpuscular Hgb Conc 33.7 g/dL (32-36); Mean Corpuscular Volume 86.6 fL (80-100); Mean Platelet Volume 9.1 fL (7.4-10.4); Platelet Count 255 K/uL (130-400); RDW Coefficient of Variation 14.2 % (11.5-14.5); RDW Standard Deviation 44.5 fL (36.4-46.3); Red Blood Count 3.43 M/uL (4.2-5.4); White Blood Count 13.02 K/uL (4.8-10.8)
[2020-04-29] MEDS: DOCUSATE SODIUM 100 MG CAP PO SCH ×2 (07:26→09:05)
[2020-04-29] MEDS ORDERED: PRENATAL VITAMIN 1 TAB PO SCH (08:00)
[2020-04-29] MEDS ORDERED: buPROPion XL 300 MG TABCR PO SCH (09:00)
[2020-04-29 09:22] LABS: Hematocrit (blood only) 30.6 % (37-47); Hemoglobin 10.3 g/dL (12.0-16.0)
== END 2020-04-29 19:00 | disposition home or self-care (01) | DRG 807 ==
LOC: 4S1 07:39 → 4S2 20:41

== ENCOUNTER 2021-10-27 14:38 | Inpatient (IN) ==
[2021-10-27] MEDS ORDERED: LACTATED RINGER'S 1,000 ML IV PRN (14:55)
[2021-10-27] MEDS ORDERED: OXYTOCIN 30 UNITS/500 ML BAG IV PRN ×2 (14:55→16:28)
[2021-10-27] MEDS ORDERED: PENICILLIN G POTASSIUM 6 MU in DEXTROSE 5% 250 ML IV STA (15:01)
[2021-10-27 15:27] LABS: Hematocrit (blood only) 34.5 % (34.1-44.9); Hemoglobin 11.7 g/dl (12.0-16.0); Mean Corpuscular Hemoglobin 29.2 pg (25.0-34.0); Mean Corpuscular Hgb Conc 33.9 g/dL (32.0-36.0); Platelet Count 248 K/uL (130-400); RDW Coefficient of Variation 14.2 % (11.5-14.5); RDW Standard Deviation 44.6 fL (36.4-46.3); Red Blood Count 4.01 M/uL (3.93-5.22); White Blood Count 8.35 K/ul (4.8-10.8)
--- NOTE | 2021-10-27 15:49 | Delivery Summary ---
Vaginal Delivery Summary Date of Service October 27, 2021 Vaginal Delivery Summary DIAGNOSES: 1. Doe intrauterine at 40w1d gestation. 2. Spontaneous onset of labor. 3. Group B Streptococcus Pos. PROCEDURE: Spontaneous vaginal delivery without laceration. SURGEON: Kathi Steinberg MD. SHOE PACKER: None. ESTIMATED BLOOD LOSS: 400 mL. COMPLICATIONS: None. PLACENTA: Spontaneous and intact with a 3-vessel cord. DISPOSITION: Stable to labor and delivery. DESCRIPTION: The patient was on [id number], without anesthesia, and pushing involuntarily when I was called to the room and arrived just moments thereafter (from my call room to [phone]). I quickly gowned and gloved. There was evident meconium-stained fluid leakage per-vagina, darkly stained with a cola- like appearance to the amniotic fluid. The patient pushed with her next contraction, having said she did not feel able to reposition before delivering. The 's head delivered with that push, while I applied perineal pressure to protect the skin from tearing. There was a tight loop of nuchal cord which was just able to be reduced. The shoulders and body delivered without any difficulty during her next contraction, and the was placed on the bed between her knees. It was vigorous and moving all extremities, and making respiratory efforts. The cord was doubly clamped by the MD and then cut by the FOB. The placenta delivered spontaneously and was noted to be intact and with a 3VC. The cervix, vagina and perineum were examined and were found to be without defect requiring repair. The fundus was firm and lochia minimal immediately after delivery. [facility] Vaginal Delivery Charge Vaginal Delivery Codes: 63764 global code for the antepartum, delivery, and post-
[2021-10-27] MEDS ORDERED: HYDROCORTISONE ACETATE 25 MG SUPP PR PRN (16:28)
[2021-10-27] MEDS ORDERED: BENZOCAINE 20% AER SPR 82.5 GM CAN EXT PRN (16:28)
[2021-10-27] MEDS ORDERED: ACETAMINOPHEN 325 MG TAB PO PRN (16:28)
[2021-10-27] MEDS ORDERED: DIPHTHERIA/TETANUS/PERTUSSIS 0.5 ML SYR/VIAL IM ONE (16:28)
[2021-10-27] MEDS ORDERED: oxyCODONE/ACETAMINOPHEN 5mg/325mg TAB PO PRN (16:28)
[2021-10-27] MEDS ORDERED: SODIUM CHLORIDE 0.9% 250 ML IV PRN (17:14)
[2021-10-27] MEDS ORDERED: PENICILLIN G POTASSIUM 3 MU in DEXTROSE 5% 100 ML IV PRN (18:09)
[2021-10-27] MEDS: IBUPROFEN 600 MG TAB PO PRN (19:58)
[2021-10-27] MEDS: DOCUSATE SODIUM 100 MG CAP PO SCH (22:00)
[2021-10-28] MEDS ORDERED: LEVOTHYROXINE SODIUM 150 MCG TABLET PO SCH ×2 (06:30)
[2021-10-28] MEDS ORDERED: PRENATAL VITAMIN 1 TAB PO SCH (08:00)
[2021-10-28] MEDS: DOCUSATE SODIUM 100 MG CAP PO SCH (08:04)
[2021-10-28] MEDS: IBUPROFEN 600 MG TAB PO PRN ×2 (08:04→15:41)
[2021-10-28 08:56] LABS: Hematocrit (blood only) 32.1 % (34.1-44.9); Hemoglobin 10.8 g/dl (12.0-16.0); Mean Corpuscular Hemoglobin 29.3 pg (25.0-34.0); Mean Corpuscular Hgb Conc 33.6 g/dL (32.0-36.0); Mean Platelet Volume 9.7 fL (9.4-12.3); Platelet Count 213 K/uL (130-400); RDW Coefficient of Variation 14.3 % (11.5-14.5); RDW Standard Deviation 45.2 fL (36.4-46.3); Red Blood Count 3.69 M/uL (3.93-5.22); White Blood Count 10.86 K/ul (4.8-10.8)
[2021-10-28] MEDS ORDERED: buPROPion XL 300 MG TABCR PO SCH (09:00)
[2021-10-28] MEDS ORDERED: LEVOTHYROXINE 175 MCG PO SCH (09:00)
--- NOTE | 2021-10-28 09:17 | Obstetrical Progress Note ---
Date of Service October 28, 2021 Assessment & Plan (1) state: PPD#1 from , experienced / grand multip mom, wishes to be discharged home as early after 24 hours as possible. No reason from OB or Peds standpoint to hold her longer than that (Dr. Aponte also in pt room this morning assessing when I arrived), so discharge instructions given this morning and patient likely to d/c home this afternoon. Subjective Ambulation: ambulating normally Voiding: no voiding problems (passing gas also.) Passing Gas:: Yes Diet Tolerance:: regular diet Lochia:: Small Feeding Type:: breast feeding Physical Exam Constitutional WD/WN, vitals as above Eyes PERRL, conjunctivae normal, anicteric sclerae Neck normal visual inspection Respiratory normal respiratory effort and able to speak in complete sentences; no respiratory distress and no labored breathing Cardiovascular Rate/Rhythm: regular rate and regular rhythm Extremities: no edema Chest (Breasts) Chest: normal inspection of chest Gastrointestinal (Abdomen) Inspection/Auscultation: abdomen normal to inspection Soft, postgravid Psychiatric A+Ox3, euthymic affect Genitourinary OB Exam Abdomen: + fundal height Fundus: + firm and + relation to umbilicus (fundus just below umbilicus); not tender Results & Data ([facility]) Vital Signs (Past 12 Hours) Vital Signs Temp Pulse Resp BP Pulse Ox O2 Del Method 10/28/21 08:00 98.1 F 70 18 108/75 98 Room Air 10/28/21 04:35 98.2 F 62 18 106/70 97 Room Air 10/27/21 23:51 98.1 F 72 18 115/74 97 Room Air Laboratory Results Vital Signs Temp Pulse Pulse Resp BP BP Pulse Ox 10/28/21 08:00 98.1 F 70 18 108/75 98 10/28/21 04:35 98.2 F 62 18 106/70 97 10/27/21 23:51 98.1 F 72 18 115/74 97 10/27/21 20:00 97.9 F 85 16 106/70 97 10/27/21 17:43 98.8 F 16 10/27/21 17:40 92 H 121/60 10/27/21 17:25 78 119/56 L 10/27/21 16:54 65 106/58 L 10/27/21 16:39 69 110/58 L 10/27/21 16:25 73 117/58 L 10/27/21 15:54 75 123/72 10/27/21 15:55 98.1 F 20 O2 Del Method 10/28/21 08:00 Room Air 10/28/21 04:35 Room Air 10/27/21 23:51 Room Air 10/27/21 20:00 Room Air 10/27/21 17:43 10/27/21 17:40 10/27/21 17:25 10/27/21 16:54 10/27/21 16:39 10/27/21 16:25 10/27/21 15:54 10/27/21 15:55 Room Air Intake and Output 10/27/21 10/28/21 10/28/21 22:59 06:59 14:59 Intake Total 500 / 500 Output Total 260 / 260 Balance 240 / 240 Intake: IV 500 / 500 Oxytocin 30 units In 500 ml @ 500 / 500 20 UNITS/HR 333.333 mls/hr IV . Q1H30M PRN Rx#:[id number] Output: Urine 175 / 175 Estimated Blood Loss 85 / 85 Other: Weight 229 lb Weight Measurement Method Standing Scale Laboratory Results - last 24 hr 10/27/21 10/27/21 10/27/21 15:06 15:06 15:10 WBC 8.35 RBC 4.01 Hgb 11.7 L Hct 34.5 MCV 86.0 MCH 29.2 MCHC 33.9 RDW Std Deviation 44.6 RDW Coeff of Rene 14.2 Plt Count 248 MPV 10.0 SARS-CoV-2, RNA, NAAT NEGATIVE Blood Type A Positive Antibody Screen NEGATIVE Crossmatch See Detail 10/28/21 08:49 WBC 10.86 H RBC 3.69 L Hgb 10.8 L Hct 32.1 L MCV 87.0 MCH 29.3 MCHC 33.6 RDW Std Deviation 45.2 RDW Coeff of Rene 14.3 Plt Count 213 MPV 9.7 SARS-CoV-2, RNA, NAAT Blood Type Antibody Screen Crossmatch
[2021-10-29] MEDS ORDERED: LEVOTHYROXINE SODIUM 175 MCG TABLET PO SCH (06:30)
[2021-11-03] MEDS ORDERED: LEVOTHYROXINE SODIUM 150 MCG TABLET PO SCH (06:30)
== END 2021-10-28 17:00 | disposition home or self-care (01) | DRG 807 ==
LOC: OPB 14:38 → 4S1 14:39 → 4E2 19:00